=== PATIENT | female | born 1990 | race Caucasian/White ===

== ENCOUNTER 2016-07-18 00:27 | Emergency (ER) | payer SELFPAY ==
[~2016-07-18] VITALS: Ht 170.2 cm; Wt 52.2 kg
--- NOTE | 2016-07-18 00:49 | NUR ---
PT BIBSELF C/O LEFT ANKLE PAIN S/P GLF, PT W/C TO ER BED 2. PT AOX4 RR EVEN AND UNLABORED. NO SOB NOTED. NAD NOTED. NO NVD AT THIS TIME. PT NOT DIAPHORETIC. PT STATES ROLLED ANKLE WITH HIGH HEEL WHEN TAKING A STEP DOWN ON THE SIDE WALK. NOTED RIGHT KNEE ABRASION. PT WAITING FOR MD MCMANUS.
--- NOTE | 2016-07-18 01:10 | NUR ---
XRAY AT BEDSIDE
[2016-07-18] MEDS ORDERED: HYDROCODONE/APAP 5/325MG 1 EACH TABLET ONE (01:46)
[2016-07-18] MEDS ORDERED: IBUPROFEN 400 MG TABLET ONE (01:49)
--- NOTE | 2016-07-18 01:54 | NUR ---
DR. FITZGERALD AT BEDSIDE SPEAKING TO PT REGARDING RESULTS
[2016-07-18] MEDS ORDERED: IBUPROFEN 400 MG TABLET PO ONE ×2 (02:00)
[2016-07-18] MEDS ORDERED: HYDROCODONE/APAP 5/325MG 1 EACH TABLET PO ONE (02:00)
[2016-07-18 02:22] VITALS: BP 123/72
--- NOTE | 2016-07-18 02:22 | NUR ---
Patient discharged to home in stable condition. Written and verbal after care instructions given. Patient verbalizes understanding of instruction. ambulatory with a steady gait with crutches
== END 2016-07-18 02:23 | disposition home or self-care (01) ==
LOC: ER 00:27
DX: S82.492A Other fracture of shaft of left fibula, initial encounter for closed fracture (principal); W01.0XXA Fall on same level from slipping, tripping and stumbling without subsequent striking against object, initial encounter; Y92.89 Other specified places as the place of occurrence of the external cause; Y93.89 Activity, other specified; Y99.8 Other external cause status
CPT/HCPCS: 73610-TC; A4606; Z7610